=== PATIENT | female | born 1940 | race Caucasian/White ===

== ENCOUNTER 2021-06-25 08:19 | Outpatient (CLI) | payer MEDICARE, OTHER | END 2021-06-25 08:20 | disposition home or self-care (01) | LOC: CSHCT 08:19 | PROVIDERS: ATTEND Internal Medicine Hematology & Oncology | DX: C02.2 Malignant neoplasm of ventral surface of tongue (principal); C34.02 Malignant neoplasm of left main bronchus; J90 Pleural effusion, not elsewhere classified; J98.4 Other disorders of lung; R91.1 Solitary pulmonary nodule; R91.8 Other nonspecific abnormal finding of lung field; R59.0 Localized enlarged lymph nodes | CPT/HCPCS: 70491; 71260 ==

== ENCOUNTER 2021-07-06 11:40 | Inpatient (IN) | payer MEDICARE, OTHER ==
[2021-07-06] MEDS ORDERED: Dexamethasone 10 MG/ML VIAL ONE (12:18)
[2021-07-06] MEDS ORDERED: Magnesium 2 GM/50 ML BAG (IN WATER) ONE (12:18)
[2021-07-06 12:45] LABS: #Basophils 0.1 10x3/uL (0.0-0.2); #Eosinphils 0.2 10x3/uL (0.0-0.5); #Monocytes 0.6 10x3/uL (0.0-1.1); #Neutrophils 15.1 10x3/uL (1.5-8.4); %Basophils 0.4 % (0.0-2.0); %Eosinophils 1.3 % (0.0-6.0); %Lymphocytes 5.4 % (18.0-47.0); %Monocytes 3.3 % (0.0-10.0); %Neutrophils 87.8 % (40.0-75.0); Hemoglobin 10.5 g/dL (12.0-15.5); Mean Corpuscular HGB CONC 31.2 g/dL (32.0-36.0); Mean Corpuscular Hemoglobin 24.7 pg (27.0-33.0); Mean Corpuscular Volume 79.3 fl (81.6-98.3); Mean Platelet Volume 8.2 fl (7.4-10.4); Platelet Count 781 10x3/uL (150-450); Red Blood Cell (RBC) Count 4.25 10x6/uL (3.90-5.03); White Blood Cell (WBC) Count 17.2 10x3/uL (3.5-10.5)
[2021-07-06 13:09] LABS: ALT (SGPT) 23 U/L (8-55); AST (SGOT) 28 U/L (5-34); Albumin 2.8 g/dL (3.4-4.8); Alkaline Phosphatase 109 U/L (40-110); Anion Gap 19 mmol/L (10-20); BUN (Urea Nitrogen) 23 mg/dL (9.8-20.1); Bilirubin, Total 0.3 mg/dL (0.2-1.2); CK (CPK) 20 U/L (29-168); Calc. Creatinine Clearance 0 mL/min (70-130); Calcium 8.2 mg/dL (7.8-10.44); Carbon Dioxide 22 mmol/L (23-31); Chloride 98 mmol/L (98-107); Globulin 3.3 g/dL (2.4-3.5); Glucose 107 mg/dL (83-110); Lipase 10 U/L (8-78); Potassium 4.4 mmol/L (3.5-5.1); Protein, Total 6.1 g/dL (5.8-8.1); Sodium 135 mmol/L (136-145)
[2021-07-06 13:27] LABS: Base Excess (BEa) -1.9 mEq/L (-2.0 to +3.0); CO2 Tension 29.4 mmHg (35.0-45.0); Calcium, Ionized (arterial) 1.09 mmol/L (1.12-1.30); Carboxyhemoglobin (COHb) 0.6 gm% (0.0-3.0); Hemoglobin (Hb) 10.8 g/dL (12.0-16.0); O2 Tension (PaO2), arterial 51.8 mmHg (> 60.0); Potassium - ABG Lab 3.8 mmol/L (3.70-5.30); Puncture Site RRA; pH, Arterial 7.47 (7.35-7.45)
[2021-07-06] MEDS ORDERED: Cefepime 2 GM VIAL ONE (13:30)
[2021-07-06 13:41] LABS: Hypochromia SLIGHT = 6-15 cells (100X) (0-5/hpf); Microcytosis SLIGHT = 6-15 cells (100X) (0-5/hpf); Platelet Morphology Comment Appears Increased
[2021-07-06 14:07] LABS: SARS-CoV-2 NAA Rapid Test Not Detected (NotDetected)
[2021-07-06] MEDS ORDERED: Acetaminophen 325 MG TAB PO PRN (14:24)
[2021-07-06] MEDS ORDERED: Senokot S 8.6-50 MG TAB PO PRN (14:24)
[2021-07-06] MEDS ORDERED: Ondansetron PF 4 MG/2 ML Vial IVP PRN (14:24)
[2021-07-06] MEDS ORDERED: Ondansetron ODT 4 MG TAB PO PRN (14:24)
[2021-07-06] MEDS ORDERED: Guaifenesin DM 100-10/5 ML UDCUP PO PRN (14:24)
[2021-07-06] MEDS ORDERED: Norepinephrine 8 MG/0.9% NS 250 ML ONE (14:51)
[2021-07-06] MEDS ORDERED: Albuterol Sulfate 2.5 mg/3 ml Neb NEB PRN (15:17)
[2021-07-06] MEDS ORDERED: methylPREDNISolone Sod Succ/PF 125 MG/2 ML VIAL IVP SCH (15:30)
[2021-07-06] MEDS: methylPREDNISolone Sod Succ 40 MG VIAL IVP SCH ×2 (19:07→23:32)
[2021-07-06] MEDS ORDERED: Famotidine 20 MG TAB PO SCH (21:00)
[2021-07-06] MEDS ORDERED: Vancomycin 1 GM in Premix Bag 1 BAG IVPB SCH (21:00)
[2021-07-06] MEDS ORDERED: Cefepime 2 GM in Sodium Chloride 0.9% 100 ML IVPB SCH (21:00)
[2021-07-07] MEDS ORDERED: Norepinephrine 8 MG/0.9% NS 250 ML IVPB SCH (02:00)
[2021-07-07 04:24] LABS: #Monocytes 0.1 10x3/uL (0.0-1.1); #Neutrophils 10.6 10x3/uL (1.5-8.4); %Basophils 0.2 % (0.0-2.0); %Monocytes 0.5 % (0.0-10.0); %Neutrophils 89.6 % (40.0-75.0); Hemoglobin 10.1 g/dL (12.0-15.5); Mean Corpuscular HGB CONC 32.3 g/dL (32.0-36.0); Mean Corpuscular Hemoglobin 25.1 pg (27.0-33.0); Mean Corpuscular Volume 77.7 fl (81.6-98.3); Mean Platelet Volume 8.2 fl (7.4-10.4); Platelet Count 725 10x3/uL (150-450); RBC Distribution Width 14.9 % (11.5-14.5); Red Blood Cell (RBC) Count 4.03 10x6/uL (3.90-5.03); White Blood Cell (WBC) Count 11.8 10x3/uL (3.5-10.5)
[2021-07-07 04:36] LABS: Anion Gap 15 mmol/L (10-20); BUN (Urea Nitrogen) 24 mg/dL (9.8-20.1); Calc. Creatinine Clearance 36 mL/min (70-130); Calcium 7.9 mg/dL (7.8-10.44); Carbon Dioxide 19 mmol/L (23-31); Chloride 105 mmol/L (98-107); Glucose 152 mg/dL (83-110); Potassium 4.3 mmol/L (3.5-5.1); Sodium 135 mmol/L (136-145)
[2021-07-07 05:19] LABS: Large Platelets SLIGHT; Platelet Morphology Comment Appears Increased; RBC Morphology Normal
[2021-07-07] MEDS: methylPREDNISolone Sod Succ 40 MG VIAL IVP SCH ×4 (05:41→23:50)
[2021-07-07 05:48] LABS: Bilirubin Neg (Negative); Blood, Urine 25 (Negative); Clarity Clear (Clear); Glucose, Urine (Dipstick) Normal (Negative); Ketone, Urine Negative (Negative); Leukocyte 100 (Negative); Nitrite Negative (Negative); Protein, Urine (Dipstick) 30 mg/dl (Neg-Trace); Urobilinogen Normal mg/dL (Less than 2)
[2021-07-07 05:58] LABS: RBC/HPF 0-3 HPF (0-3)
[2021-07-07 05:59] LABS: Bacteria/HPF Rare-Few HPF (None Seen); Legionella Urinary Ag Negative (Negative); Strep pneumo Urine Ag NEGATIVE (NEGATIVE); Transitional Epithelial 0-3 HPF (None Seen)
[2021-07-07] MEDS: Enoxaparin Sodium 40 MG/0.4 ML SYRINGE SC SCH (09:29)
[2021-07-07] MEDS: Cefepime 2 GM in Sodium Chloride 0.9% 100 ML IVPB SCH (13:12)
[2021-07-07] MEDS: Vancomycin HCl 750 MG in Sodium Chloride 0.9% 250 ML 250 ML IVPB SCH (15:32)
[2021-07-07] MEDS: Famotidine 20 MG TAB PO SCH (21:00)
[2021-07-07] MEDS: traZODone HCl 50 MG TAB PO PRN (21:00)
[2021-07-08] MEDS: Cefepime 2 GM in Sodium Chloride 0.9% 100 ML IVPB SCH ×2 (02:08→14:34)
[2021-07-08 04:30] LABS: Hemoglobin 9.9 g/dL (12.0-15.5); Mean Corpuscular HGB CONC 31.3 g/dL (32.0-36.0); Mean Corpuscular Hemoglobin 24.9 pg (27.0-33.0); Mean Corpuscular Volume 79.4 fl (81.6-98.3); Mean Platelet Volume 8.3 fl (7.4-10.4); Platelet Count 612 10x3/uL (150-450); RBC Distribution Width 15.4 % (11.5-14.5); Red Blood Cell (RBC) Count 3.98 10x6/uL (3.90-5.03); White Blood Cell (WBC) Count 20.8 10x3/uL (3.5-10.5)
[2021-07-08 04:48] LABS: Anion Gap 13 mmol/L (10-20); BUN (Urea Nitrogen) 29 mg/dL (9.8-20.1); Calc. Creatinine Clearance 36 mL/min (70-130); Calcium 7.9 mg/dL (7.8-10.44); Carbon Dioxide 21 mmol/L (23-31); Chloride 108 mmol/L (98-107); Glucose 158 mg/dL (83-110); Magnesium 2.1 mg/dL (1.6-2.6); Phosphorus 4.3 mg/dL (2.3-4.7); Potassium 4.4 mmol/L (3.5-5.1); Sodium 138 mmol/L (136-145)
[2021-07-08] MEDS ORDERED: Levothyroxine Sodium 25 MCG TAB PO SCH (06:00)
[2021-07-08 06:02] LABS: MDiff Complete? YES
[2021-07-08 06:05] LABS: Band 6 % (5-11); Lymphocytes 5 % (21-51); Monocytes 2 % (0-10); Neutrophil 87 % (42-75); Platelet Morphology Comment Appears Adequate
[2021-07-08 06:06] LABS: RBC Morphology Normal
[2021-07-08] MEDS: Amlodipine 5 MG TAB PO SCH (08:46)
[2021-07-08] MEDS: Levothyroxine Sodium 25 MCG TAB PO SCH (08:47)
[2021-07-08] MEDS: Aspirin 81 mg Enteric Coated Tablet PO SCH (08:47)
[2021-07-08] MEDS: Nicotine 21 MG PATCH TOP SCH (08:47)
[2021-07-08] MEDS: Enoxaparin Sodium 40 MG/0.4 ML SYRINGE SC SCH (08:47)
[2021-07-08] MEDS: methylPREDNISolone Sod Succ 40 MG VIAL IVP SCH ×4 (09:02→23:45)
[2021-07-08 15:24] LABS: Vancomycin, Trough 10.1 ug/mL
[2021-07-08] MEDS: Vancomycin HCl 750 MG in Sodium Chloride 0.9% 250 ML 250 ML IVPB SCH (15:49)
[2021-07-08] MEDS: Famotidine 20 MG TAB PO SCH (21:17)
[2021-07-08] MEDS: traZODone HCl 50 MG TAB PO PRN (21:17)
[2021-07-09] MEDS: Cefepime 2 GM in Sodium Chloride 0.9% 100 ML IVPB SCH ×2 (01:51→13:01)
[2021-07-09 03:49] LABS: #Monocytes 0.2 10x3/uL (0.0-1.1); #Neutrophils 17.3 10x3/uL (1.5-8.4); %Basophils 0.2 % (0.0-2.0); %Monocytes 0.8 % (0.0-10.0); %Neutrophils 91.7 % (40.0-75.0); Hemoglobin 9.3 g/dL (12.0-15.5); Mean Corpuscular HGB CONC 30.2 g/dL (32.0-36.0); Mean Corpuscular Hemoglobin 24.2 pg (27.0-33.0); Platelet Count 634 10x3/uL (150-450); RBC Distribution Width 15.5 % (11.5-14.5); Red Blood Cell (RBC) Count 3.85 10x6/uL (3.90-5.03); White Blood Cell (WBC) Count 18.9 10x3/uL (3.5-10.5)
[2021-07-09 04:00] LABS: Anion Gap 13 mmol/L (10-20); BUN (Urea Nitrogen) 32 mg/dL (9.8-20.1); CRP (Inflammatory) 4.12 mg/dL (= or < 0.5); Calc. Creatinine Clearance 43 mL/min (70-130); Calcium 7.8 mg/dL (7.8-10.44); Carbon Dioxide 20 mmol/L (23-31); Chloride 108 mmol/L (98-107); Glucose 157 mg/dL (83-110); Potassium 3.9 mmol/L (3.5-5.1); Sodium 137 mmol/L (136-145)
[2021-07-09] MEDS: Levothyroxine Sodium 25 MCG TAB PO SCH (05:20)
[2021-07-09] MEDS: methylPREDNISolone Sod Succ 40 MG VIAL IVP SCH ×3 (06:13→21:12)
[2021-07-09] MEDS: Amlodipine 5 MG TAB PO SCH (07:54)
[2021-07-09] MEDS: Nicotine 21 MG PATCH TOP SCH (07:54)
[2021-07-09] MEDS: Enoxaparin Sodium 40 MG/0.4 ML SYRINGE SC SCH (07:55)
[2021-07-09] MEDS: Aspirin 81 mg Enteric Coated Tablet PO SCH (07:55)
[2021-07-09] MEDS ORDERED: Vancomycin HCl 1 GM in Sodium Chloride 0.9% 250 ML 250 ML IVPB SCH (15:00)
[2021-07-09] MEDS: Famotidine 20 MG TAB PO SCH (20:17)
[2021-07-10] MEDS: Cefepime 2 GM in Sodium Chloride 0.9% 100 ML IVPB SCH ×2 (02:15→14:34)
[2021-07-10] MEDS: Levothyroxine Sodium 25 MCG TAB PO SCH (05:37)
[2021-07-10] MEDS: methylPREDNISolone Sod Succ 40 MG VIAL IVP SCH ×2 (05:37→14:34)
[2021-07-10] MEDS: Amlodipine 5 MG TAB PO SCH (08:33)
[2021-07-10] MEDS: Enoxaparin Sodium 40 MG/0.4 ML SYRINGE SC SCH (08:33)
[2021-07-10] MEDS: Aspirin 81 mg Enteric Coated Tablet PO SCH (08:33)
[2021-07-10] MEDS: Nicotine 21 MG PATCH TOP SCH (08:33)
[2021-07-11] MEDS ORDERED: Sodium Chloride 0.9% 500 ML IV SCH (05:30)
[2021-07-11] MEDS: Famotidine 20 MG TAB PO SCH ×2 (07:39→20:44)
[2021-07-11] MEDS: Cefepime 2 GM in Sodium Chloride 0.9% 100 ML IVPB SCH ×2 (07:40→14:19)
[2021-07-11] MEDS: methylPREDNISolone Sod Succ 40 MG VIAL IVP SCH ×3 (07:40→22:32)
[2021-07-11] MEDS: Levothyroxine Sodium 25 MCG TAB PO SCH (07:40)
[2021-07-11] MEDS: Amlodipine 5 MG TAB PO SCH (08:20)
[2021-07-11] MEDS: Nicotine 21 MG PATCH TOP SCH (08:21)
[2021-07-11] MEDS: Enoxaparin Sodium 40 MG/0.4 ML SYRINGE SC SCH (08:21)
[2021-07-11] MEDS: Aspirin 81 mg Enteric Coated Tablet PO SCH (08:21)
[2021-07-11] MEDS: traZODone HCl 50 MG TAB PO PRN (20:44)
[2021-07-12 03:51] LABS: Hemoglobin 9.7 g/dL (12.0-15.5); Mean Corpuscular HGB CONC 30.6 g/dL (32.0-36.0); Mean Corpuscular Hemoglobin 24.5 pg (27.0-33.0); Mean Corpuscular Volume 80.1 fl (81.6-98.3); Mean Platelet Volume 8.1 fl (7.4-10.4); Platelet Count 564 10x3/uL (150-450); Red Blood Cell (RBC) Count 3.96 10x6/uL (3.90-5.03); White Blood Cell (WBC) Count 11.6 10x3/uL (3.5-10.5)
[2021-07-12 04:09] LABS: Anion Gap 13 mmol/L (10-20); BUN (Urea Nitrogen) 33 mg/dL (9.8-20.1); CRP (Inflammatory) 0.98 mg/dL (= or < 0.5); Calc. Creatinine Clearance 50 mL/min (70-130); Calcium 7.4 mg/dL (7.8-10.44); Carbon Dioxide 22 mmol/L (23-31); Chloride 107 mmol/L (98-107); Glucose 178 mg/dL (83-110); Potassium 3.7 mmol/L (3.5-5.1); Sodium 138 mmol/L (136-145)
[2021-07-12 04:38] LABS: MDiff Complete? YES; Manual Diff?? YES
[2021-07-12 05:41] LABS: Band 4 % (5-11); Lymphocytes 2 % (21-51); Metamyelocyte 1 % (0-0); Neutrophil 91 % (42-75); Platelet Morphology Comment Appears Increased; Reactive Lymphocytes 1 % (0-10)
[2021-07-12 05:42] LABS: Anisocytosis SLIGHT = 6-15 cells (100X) (0-5/hpf); Hypochromia SLIGHT = 6-15 cells (100X) (0-5/hpf); Macrocytosis SLIGHT = 6-15 cells (100X) (0-5/hpf); Microcytosis SLIGHT = 6-15 cells (100X) (0-5/hpf)
[2021-07-12] MEDS: Cefepime 2 GM in Sodium Chloride 0.9% 100 ML IVPB SCH ×2 (05:47→14:37)
[2021-07-12] MEDS: Levothyroxine Sodium 25 MCG TAB PO SCH (05:48)
[2021-07-12] MEDS: methylPREDNISolone Sod Succ 40 MG VIAL IVP SCH ×3 (06:27→21:07)
[2021-07-12] MEDS: Enoxaparin Sodium 40 MG/0.4 ML SYRINGE SC SCH (08:03)
[2021-07-12] MEDS: Amlodipine 5 MG TAB PO SCH (08:03)
[2021-07-12] MEDS: Aspirin 81 mg Enteric Coated Tablet PO SCH (08:03)
[2021-07-12] MEDS: Nicotine 21 MG PATCH TOP SCH (08:04)
[2021-07-12] MEDS ORDERED: Bisacodyl 5 MG TAB PO PRN (11:28)
[2021-07-12] MEDS ORDERED: hydrALAZINE 20 MG/ML VIAL SLOW IVP PRN (11:28)
[2021-07-12] MEDS ORDERED: Cepastat Lozenges 1 LOZ PO PRN (11:28)
[2021-07-12] MEDS ORDERED: Zolpidem Tartrate 5 MG TAB PO PRN (11:28)
[2021-07-12] MEDS ORDERED: Loperamide HCl 2 MG CAP PO PRN ×2 (11:28→11:36)
[2021-07-12] MEDS ORDERED: HYDROcodone/Acetaminophen 5/325 mg Tablet PO PRN (11:28)
[2021-07-12] MEDS ORDERED: Sodium Chloride 0.65% Nasal 44 ML BOT EA NARE PRN (11:28)
[2021-07-12] MEDS ORDERED: Loratadine 10 MG TAB PO PRN (11:28)
[2021-07-12] MEDS ORDERED: Artificial Tear Sol 15 ML BOT EA EYE PRN (11:28)
[2021-07-12] MEDS ORDERED: Calcium Carbonate 500 MG ChewTAB PO PRN (11:28)
[2021-07-12] MEDS ORDERED: Hydrocerin (Eucerin) Cream 120 gm Jar TOP PRN (11:28)
[2021-07-12] MEDS ORDERED: GUAIFENESIN SF SOLN 200 MG/10 ML UDCUP PO PRN (11:28)
[2021-07-12] MEDS: Famotidine 20 MG TAB PO SCH (20:17)
[2021-07-12] MEDS: traZODone HCl 50 MG TAB PO PRN (21:15)
[2021-07-13] MEDS: Cefepime 2 GM in Sodium Chloride 0.9% 100 ML IVPB SCH ×2 (01:58→14:55)
[2021-07-13 05:09] LABS: ALT (SGPT) 24 U/L (8-55); AST (SGOT) 27 U/L (5-34); Albumin 2.6 g/dL (3.4-4.8); Alkaline Phosphatase 61 U/L (40-110); Anion Gap 14 mmol/L (10-20); BUN (Urea Nitrogen) 33 mg/dL (9.8-20.1); Bilirubin, Total 0.2 mg/dL (0.2-1.2); Calc. Creatinine Clearance 0 mL/min (70-130); Calcium 7.6 mg/dL (7.8-10.44); Carbon Dioxide 21 mmol/L (23-31); Chloride 107 mmol/L (98-107); Globulin 2.9 g/dL (2.4-3.5); Glucose 147 mg/dL (83-110); Magnesium 1.9 mg/dL (1.6-2.6); Phosphorus 2.9 mg/dL (2.3-4.7); Potassium 4.2 mmol/L (3.5-5.1); Protein, Total 5.5 g/dL (5.8-8.1); Sodium 138 mmol/L (136-145)
[2021-07-13 05:21] LABS: Hemoglobin 10.9 g/dL (12.0-15.5); Mean Corpuscular HGB CONC 30.1 g/dL (32.0-36.0); Mean Corpuscular Hemoglobin 24.2 pg (27.0-33.0); Mean Corpuscular Volume 80.4 fl (81.6-98.3); Mean Platelet Volume 8.1 fl (7.4-10.4); Platelet Count 591 10x3/uL (150-450); RBC Distribution Width 16.5 % (11.5-14.5); White Blood Cell (WBC) Count 14.5 10x3/uL (3.5-10.5)
[2021-07-13 05:24] VITALS: BMI 21.4
[2021-07-13 06:04] LABS: MDiff Complete? YES
[2021-07-13 06:05] LABS: Platelet Morphology Comment Appears Increased
[2021-07-13 06:06] LABS: RBC Morphology Normal
[2021-07-13] MEDS: Levothyroxine Sodium 25 MCG TAB PO SCH (06:07)
[2021-07-13] MEDS: methylPREDNISolone Sod Succ 40 MG VIAL IVP SCH ×3 (06:07→22:17)
[2021-07-13 06:10] LABS: Band 3 % (5-11); Lymphocytes 4 % (21-51); Monocytes 6 % (0-10); Neutrophil 87 % (42-75)
[2021-07-13] MEDS: Nicotine 21 MG PATCH TOP SCH (08:05)
[2021-07-13] MEDS: Amlodipine 5 MG TAB PO SCH (11:21)
[2021-07-13] MEDS: Enoxaparin Sodium 40 MG/0.4 ML SYRINGE SC SCH (11:23)
[2021-07-13] MEDS: Aspirin 81 mg Enteric Coated Tablet PO SCH (11:23)
[2021-07-13] MEDS: Mometasone/Formoterol 200/5 60 PUFF INH SCH (18:53)
[2021-07-13] MEDS: traZODone HCl 50 MG TAB PO PRN (22:23)
[2021-07-14] MEDS: Cefepime 2 GM in Sodium Chloride 0.9% 100 ML IVPB SCH ×2 (01:50→15:25)
[2021-07-14 05:22] LABS: Hemoglobin 10.8 g/dL (12.0-15.5); Mean Corpuscular HGB CONC 30.9 g/dL (32.0-36.0); Mean Corpuscular Hemoglobin 24.9 pg (27.0-33.0); Mean Corpuscular Volume 80.6 fl (81.6-98.3); Mean Platelet Volume 8.4 fl (7.4-10.4); Platelet Count 520 10x3/uL (150-450); RBC Distribution Width 16.6 % (11.5-14.5); Red Blood Cell (RBC) Count 4.34 10x6/uL (3.90-5.03); White Blood Cell (WBC) Count 12.1 10x3/uL (3.5-10.5)
[2021-07-14 05:23] LABS: MDiff Complete? YES; Manual Diff?? YES
[2021-07-14 05:45] LABS: Anion Gap 12 mmol/L (10-20); BUN (Urea Nitrogen) 36 mg/dL (9.8-20.1); Calc. Creatinine Clearance 46 mL/min (70-130); Calcium 7.3 mg/dL (7.8-10.44); Carbon Dioxide 21 mmol/L (23-31); Chloride 107 mmol/L (98-107); Glucose 134 mg/dL (83-110); Potassium 4.1 mmol/L (3.5-5.1); Sodium 136 mmol/L (136-145)
[2021-07-14] MEDS: methylPREDNISolone Sod Succ 40 MG VIAL IVP SCH ×3 (07:49→22:05)
[2021-07-14] MEDS: Levothyroxine Sodium 25 MCG TAB PO SCH (07:49)
[2021-07-14 08:05] LABS: Band 2 % (5-11); Lymphocytes 7 % (21-51); Monocytes 3 % (0-10); Neutrophil 86 % (42-75); Reactive Lymphocytes 2 % (0-10)
[2021-07-14 08:06] LABS: Platelet Morphology Comment Appears Increased
[2021-07-14 08:09] LABS: RBC Morphology Normal
[2021-07-14 08:54] LABS: SARS-CoV-2 PCR by NAA Not Detected (NotDetected)
[2021-07-14] MEDS: Nicotine 21 MG PATCH TOP SCH (11:00)
[2021-07-14] MEDS: Enoxaparin Sodium 40 MG/0.4 ML SYRINGE SC SCH (11:00)
[2021-07-14] MEDS: Amlodipine 5 MG TAB PO SCH (13:07)
[2021-07-14] MEDS: Aspirin 81 mg Enteric Coated Tablet PO SCH (13:08)
[2021-07-14] MEDS: Mometasone/Formoterol 200/5 60 PUFF INH SCH ×2 (19:37→23:45)
[2021-07-14] MEDS: traZODone HCl 50 MG TAB PO PRN (22:26)
[2021-07-15] MEDS: Cefepime 2 GM in Sodium Chloride 0.9% 100 ML IVPB SCH ×2 (00:50→14:40)
[2021-07-15] MEDS: Levothyroxine Sodium 25 MCG TAB PO SCH (05:44)
[2021-07-15] MEDS: methylPREDNISolone Sod Succ 40 MG VIAL IVP SCH ×3 (05:45→21:33)
[2021-07-15] MEDS: Mometasone/Formoterol 200/5 60 PUFF INH SCH ×2 (07:24→19:14)
[2021-07-15] MEDS: Amlodipine 5 MG TAB PO SCH (08:55)
[2021-07-15] MEDS: Aspirin 81 mg Enteric Coated Tablet PO SCH (08:55)
[2021-07-15] MEDS: Enoxaparin Sodium 40 MG/0.4 ML SYRINGE SC SCH (08:56)
[2021-07-15] MEDS: Nicotine 21 MG PATCH TOP SCH (08:56)
[2021-07-15] MEDS: traZODone HCl 50 MG TAB PO PRN (21:33)
[2021-07-16] MEDS: Levothyroxine Sodium 25 MCG TAB PO SCH (05:36)
[2021-07-16] MEDS: Mometasone/Formoterol 200/5 60 PUFF INH SCH (07:49)
[2021-07-16] MEDS ORDERED: predniSONE 10 MG TAB PO SCH (09:00)
[2021-07-16] MEDS: Amlodipine 5 MG TAB PO SCH (10:14)
[2021-07-16] MEDS: Aspirin 81 mg Enteric Coated Tablet PO SCH (10:15)
[2021-07-16] MEDS: Enoxaparin Sodium 40 MG/0.4 ML SYRINGE SC SCH (10:15)
[2021-07-16] MEDS: Nicotine 21 MG PATCH TOP SCH (10:15)
[2021-07-16 13:18] VITALS: BP 117/82; TEMP 98.8
== END 2021-07-16 17:53 | disposition home or self-care (01) | DRG 871 ==
LOC: CSHERS 11:40 → CSHIMCU 15:37 → CSHTELE 07-13 11:11
PROVIDERS: ADMIT Hospitalist; ATTEND Internal Medicine
PROC: 3E033XZ Introduction of Vasopressor into Peripheral Vein, Percutaneous Approach (ICD-10-PCS; principal; 2021-07-06)
PROC: 5A0955A Assistance with Respiratory Ventilation, Greater than 96 Consecutive Hours, High Flow/Velocity Cannula (ICD-10-PCS; 2021-07-06)
PROC: 3E0333Z Introduction of Anti-inflammatory into Peripheral Vein, Percutaneous Approach (ICD-10-PCS; 2021-07-06)
DX: A41.9 Sepsis, unspecified organism (principal); R65.21 Severe sepsis with septic shock; J18.9 Pneumonia, unspecified organism; J96.21 Acute and chronic respiratory failure with hypoxia; J44.1 Chronic obstructive pulmonary disease with (acute) exacerbation; J44.0 Chronic obstructive pulmonary disease with (acute) lower respiratory infection; E44.0 Moderate protein-calorie malnutrition; C78.02 Secondary malignant neoplasm of left lung; D63.8 Anemia in other chronic diseases classified elsewhere; Z20.822 Contact with and (suspected) exposure to COVID-19; Z66 Do not resuscitate; F17.210 Nicotine dependence, cigarettes, uncomplicated; C02.9 Malignant neoplasm of tongue, unspecified; F03.90 Unspecified dementia, unspecified severity, without behavioral disturbance, psychotic disturbance, mood disturbance, and anxiety; F32.A Depression, unspecified; E03.9 Hypothyroidism, unspecified; C50.912 Malignant neoplasm of unspecified site of left female breast; I10 Essential (primary) hypertension; Z79.899 Other long term (current) drug therapy; Z79.891 Long term (current) use of opiate analgesic; Z79.82 Long term (current) use of aspirin; Z90.89 Acquired absence of other organs; Z71.6 Tobacco abuse counseling; Z68.21 Body mass index [BMI] 21.0-21.9, adult; Z79.52 Long term (current) use of systemic steroids; Z79.890 Hormone replacement therapy
CPT/HCPCS: 36415; 36600; 71045; 80048; 80053; 80202; 81001; 82550; 82805; 83605; 83690; 83735; 83880; 84100; 84145; 84484; 85025; 85652; 86140; 87040; 87070; 87205; 87449; 87804; 87899; 93005; 93306; 94640; 94760; 94762; 96365; 96366; 96367; 96368; 96375; J0692; J1100; J1650; J1956; J2920; J2930; J3370; J3475; J3490; J7050; J7512; J7620; U0002; U0003; U0005

== ENCOUNTER 2021-08-04 07:46 | Outpatient (CLI) | payer MEDICARE, OTHER | END 2021-08-04 07:47 | disposition home or self-care (01) | LOC: CSHCT 07:46 | PROVIDERS: ATTEND Internal Medicine Hematology & Oncology | DX: C34.90 Malignant neoplasm of unspecified part of unspecified bronchus or lung (principal); J18.9 Pneumonia, unspecified organism; R91.8 Other nonspecific abnormal finding of lung field | CPT/HCPCS: 71260; 82565 ==

== ENCOUNTER 2021-11-09 12:27 | Outpatient (CLI) | payer MEDICARE, OTHER ==
[~2021-11-09 12:27] MED LIST: Iopamidol 300 61% 100 ML VIAL FS ONE
== END 2021-11-09 12:28 | disposition home or self-care (01) ==
LOC: CSHCT 12:27
PROVIDERS: ATTEND Internal Medicine Hematology & Oncology
DX: C34.02 Malignant neoplasm of left main bronchus (principal); R91.8 Other nonspecific abnormal finding of lung field
CPT/HCPCS: 71260; 82565

== ENCOUNTER 2022-02-21 13:41 | Inpatient (IN) | payer MEDICARE, OTHER ==
[2022-02-21 14:26] LABS: #Monocytes 0.2 10x3/uL (0.0-1.1); #Neutrophils 7.9 10x3/uL (1.5-8.4); %Basophils 0.5 % (0.0-2.0); %Eosinophils 0.1 % (0.0-6.0); %Lymphocytes 5.1 % (18.0-47.0); %Monocytes 1.8 % (0.0-10.0); %Neutrophils 90.8 % (40.0-75.0); Hemoglobin 12.1 g/dL (12.0-15.5); Mean Corpuscular Hemoglobin 25.2 pg (27.0-33.0); Mean Platelet Volume 9.4 fl (7.4-10.4); Platelet Count 301 10x3/uL (150-450); RBC Distribution Width 17.7 % (11.5-14.5); White Blood Cell (WBC) Count 8.7 10x3/uL (3.5-10.5)
[2022-02-21 14:38] LABS: ALT (SGPT) 13 U/L (8-55); AST (SGOT) 14 U/L (5-34); Albumin 4.1 g/dL (3.4-4.8); Alkaline Phosphatase 61 U/L (40-110); Anion Gap 16 mmol/L (10-20); BUN (Urea Nitrogen) 17 mg/dL (9.8-20.1); Bilirubin, Total 0.5 mg/dL (0.2-1.2); Calc. Creatinine Clearance 0 mL/min (70-130); Calcium 9.2 mg/dL (7.8-10.44); Carbon Dioxide 26 mmol/L (23-31); Chloride 102 mmol/L (98-107); Estimated GFR 55; Globulin 2.5 g/dL (2.4-3.5); Glucose 155 mg/dL (83-110); Potassium 3.3 mmol/L (3.5-5.1); Protein, Total 6.6 g/dL (5.8-8.1); Sodium 141 mmol/L (136-145)
[2022-02-21 15:01] LABS: CKMB 3.5 ng/mL (0-6.6)
[2022-02-21] MEDS ORDERED: Furosemide 40 MG/4 ML VIAL ONE (15:21)
[2022-02-21] MEDS ORDERED: Aspirin Chewable 81 MG TAB ONE (16:45)
[2022-02-21] MEDS ORDERED: hydrALAZINE 20 MG/ML VIAL SLOW IVP PRN (17:41)
[2022-02-21] MEDS ORDERED: Ondansetron ODT 4 MG TAB PO PRN (17:42)
[2022-02-21] MEDS ORDERED: Electrolyte Replacement Protocol 1 EACH FS PRN (17:45)
[2022-02-21] MEDS ORDERED: Ventolin HFA Inhaler 60 PUFF INHALER INH PRN (18:21)
[2022-02-21 18:26] LABS: Troponin I 0.045 ng/mL (< 0.028)
[2022-02-21] MEDS ORDERED: Potassium Chloride 20 MEQ TAB PO SCH (18:30)
[2022-02-21 19:42] LABS: SARS-CoV-2 NAA Rapid Test Not Detected (NotDetected)
[2022-02-21 21:15] LABS: Troponin I 0.055 ng/mL (< 0.028)
[2022-02-22] MEDS: HYDROcodone/Acetaminophen 5/325 mg Tablet PO PRN ×2 (03:20→14:31)
[2022-02-22 05:32] LABS: Anion Gap 15 mmol/L (10-20); BUN (Urea Nitrogen) 16 mg/dL (9.8-20.1); Calc. Creatinine Clearance 35 mL/min (70-130); Calcium 8.6 mg/dL (7.8-10.44); Carbon Dioxide 29 mmol/L (23-31); Chloride 103 mmol/L (98-107); Estimated GFR 65; Glucose 94 mg/dL (83-110); Potassium 3.1 mmol/L (3.5-5.1); Sodium 144 mmol/L (136-145)
[2022-02-22 05:33] LABS: #Basophils 0.1 10x3/uL (0.0-0.2); #Eosinphils 0.3 10x3/uL (0.0-0.5); #Monocytes 0.5 10x3/uL (0.0-1.1); #Neutrophils 6.3 10x3/uL (1.5-8.4); %Basophils 0.9 % (0.0-2.0); %Eosinophils 3.5 % (0.0-6.0); %Lymphocytes 10.4 % (18.0-47.0); %Monocytes 6.1 % (0.0-10.0); %Neutrophils 76.5 % (40.0-75.0); Hemoglobin 12.3 g/dL (12.0-15.5); Mean Corpuscular HGB CONC 30.7 g/dL (32.0-36.0); Mean Corpuscular Hemoglobin 25.5 pg (27.0-33.0); Mean Corpuscular Volume 83.2 fl (81.6-98.3); Mean Platelet Volume 9.5 fl (7.4-10.4); Platelet Count 210 10x3/uL (150-450); RBC Distribution Width 18.2 % (11.5-14.5); Red Blood Cell (RBC) Count 4.82 10x6/uL (3.90-5.03); White Blood Cell (WBC) Count 7.9 10x3/uL (3.5-10.5)
[2022-02-22] MEDS ORDERED: Potassium Chloride 20 MEQ TAB PO SCH ×2 (05:45→13:00)
[2022-02-22] MEDS: Aspirin 81 mg Enteric Coated Tablet PO SCH (08:35)
[2022-02-22] MEDS: Furosemide 40 MG/4 ML VIAL SLOW IVP SCH (08:35)
[2022-02-22] MEDS ORDERED: Polyethylene Glycol 3350 17 GM Packet PO PRN (10:24)
[2022-02-22] MEDS ORDERED: predniSONE 20 MG TAB PO SCH (10:30)
[2022-02-22 11:34] LABS: Potassium 3.5 mmol/L (3.5-5.1)
[2022-02-22] MEDS: Cefepime 1 GM in Sodium Chloride 0.9% 100 ML IVPB SCH ×2 (11:34→23:10)
[2022-02-22 11:41] LABS: Magnesium 1.3 mg/dL (1.6-2.6)
[2022-02-22] MEDS ORDERED: Magnesium 2 GM/50 ML(in water) 2 GM in Premix Bag 1 BAG IVPB SCH ×2 (13:00→15:15)
[2022-02-22 15:00] VITALS: BMI 17.2
[2022-02-22 18:28] LABS: Potassium 4.8 mmol/L (3.5-5.1)
[2022-02-22] MEDS: Mometasone/Formoterol 200/5 60 PUFF INH SCH (19:40)
[2022-02-22] MEDS: Docusate 100 MG CAP PO PRN (20:57)
[2022-02-22] MEDS: Senokot S 8.6-50 MG TAB PO SCH (20:59)
[2022-02-22] MEDS: Acetaminophen 325 MG TAB PO PRN (23:19)
[2022-02-22] MEDS: traZODone HCl 50 MG TAB PO PRN (23:19)
[2022-02-23] MEDS: Acetaminophen 325 MG TAB PO PRN ×2 (03:10→21:00)
[2022-02-23 05:30] LABS: #Basophils 0.1 10x3/uL (0.0-0.2); #Monocytes 0.5 10x3/uL (0.0-1.1); #Neutrophils 7.7 10x3/uL (1.5-8.4); %Basophils 0.6 % (0.0-2.0); %Eosinophils 0.1 % (0.0-6.0); %Lymphocytes 6.5 % (18.0-47.0); %Monocytes 5.2 % (0.0-10.0); Hemoglobin 11.9 g/dL (12.0-15.5); Mean Corpuscular HGB CONC 30.4 g/dL (32.0-36.0); Mean Corpuscular Hemoglobin 25.6 pg (27.0-33.0); Mean Corpuscular Volume 84.1 fl (81.6-98.3); Mean Platelet Volume 9.7 fl (7.4-10.4); Phosphorus 3.7 mg/dL (2.3-4.7); Platelet Count 279 10x3/uL (150-450); RBC Distribution Width 18.4 % (11.5-14.5); Red Blood Cell (RBC) Count 4.65 10x6/uL (3.90-5.03); White Blood Cell (WBC) Count 9.1 10x3/uL (3.5-10.5)
[2022-02-23 05:32] LABS: Anion Gap 16 mmol/L (10-20); BUN (Urea Nitrogen) 20 mg/dL (9.8-20.1); Calc. Creatinine Clearance 33 mL/min (70-130); Calcium 9.1 mg/dL (7.8-10.44); Carbon Dioxide 30 mmol/L (23-31); Cardiac Risk 4.6 (Less than 4.5); Chloride 104 mmol/L (98-107); Cholesterol 235 mg/dl (< 200 Desired); Estimated GFR 59; Glucose 134 mg/dL (83-110); HDL Cholesterol 51 mg/dL (>60 Neg Risk); LDL Cholesterol, Calculated 158 mg/dL; Magnesium 2.7 mg/dL (1.6-2.6); Potassium 5.2 mmol/L (3.5-5.1); Sodium 145 mmol/L (136-145); Triglycerides 131 mg/dL (Less than 150)
[2022-02-23] MEDS: Levothyroxine Sodium 25 MCG TAB PO SCH (06:52)
[2022-02-23] MEDS: Mometasone/Formoterol 200/5 60 PUFF INH SCH ×2 (07:01→19:29)
[2022-02-23] MEDS ORDERED: predniSONE 20 MG TAB PO SCH (08:00)
[2022-02-23] MEDS ORDERED: Enoxaparin Sodium 30 MG/0.3 ML SYRINGE SC SCH (09:00)
[2022-02-23] MEDS ORDERED: Enoxaparin Sodium 40 MG/0.4 ML SYRINGE SC SCH (09:00)
[2022-02-23] MEDS ORDERED: Enoxaparin Sodium 30 MG/0.3 ML SYRINGE ONE (09:46)
[2022-02-23] MEDS: Amlodipine 10 MG TAB PO SCH (09:50)
[2022-02-23] MEDS: predniSONE 50 MG TAB PO SCH (09:50)
[2022-02-23] MEDS: Senokot S 8.6-50 MG TAB PO SCH ×2 (09:50→21:01)
[2022-02-23] MEDS: Furosemide 40 MG/4 ML VIAL SLOW IVP SCH (09:50)
[2022-02-23] MEDS: Aspirin 81 mg Enteric Coated Tablet PO SCH (09:50)
[2022-02-23] MEDS: Nicotine 21 MG PATCH TOP SCH (09:52)
[2022-02-23] MEDS: Polyethylene Glycol 3350 17 GM Packet PO SCH (09:52)
[2022-02-23] MEDS: Cefepime 1 GM in Sodium Chloride 0.9% 100 ML IVPB SCH ×2 (14:41→23:27)
[2022-02-23 14:42] LABS: Anion Gap 18 mmol/L (10-20); BUN (Urea Nitrogen) 24 mg/dL (9.8-20.1); Calc. Creatinine Clearance 30 mL/min (70-130); Calcium 9.2 mg/dL (7.8-10.44); Carbon Dioxide 31 mmol/L (23-31); Chloride 101 mmol/L (98-107); Estimated GFR 53; Glucose 152 mg/dL (83-110); Potassium 4.7 mmol/L (3.5-5.1); Sodium 145 mmol/L (136-145)
[2022-02-23] MEDS: Docusate 100 MG CAP PO PRN (21:00)
[2022-02-23] MEDS: traZODone HCl 50 MG TAB PO PRN (23:02)
[2022-02-23] MEDS: HYDROcodone/Acetaminophen 5/325 mg Tablet PO PRN (23:02)
[2022-02-24 05:20] LABS: #Monocytes 0.4 10x3/uL (0.0-1.1); #Neutrophils 9.9 10x3/uL (1.5-8.4); %Basophils 0.2 % (0.0-2.0); %Eosinophils 0.1 % (0.0-6.0); %Monocytes 3.3 % (0.0-10.0); %Neutrophils 85.4 % (40.0-75.0); Hemoglobin 11.6 g/dL (12.0-15.5); Mean Corpuscular HGB CONC 30.5 g/dL (32.0-36.0); Mean Corpuscular Hemoglobin 25.7 pg (27.0-33.0); Mean Corpuscular Volume 84.1 fl (81.6-98.3); Mean Platelet Volume 9.8 fl (7.4-10.4); Platelet Count 282 10x3/uL (150-450); RBC Distribution Width 18.1 % (11.5-14.5); Red Blood Cell (RBC) Count 4.52 10x6/uL (3.90-5.03); White Blood Cell (WBC) Count 11.7 10x3/uL (3.5-10.5)
[2022-02-24 05:29] LABS: Anion Gap 14 mmol/L (10-20); BUN (Urea Nitrogen) 26 mg/dL (9.8-20.1); Calc. Creatinine Clearance 32 mL/min (70-130); Calcium 8.9 mg/dL (7.8-10.44); Carbon Dioxide 32 mmol/L (23-31); Chloride 99 mmol/L (98-107); Estimated GFR 58; Glucose 134 mg/dL (83-110); Potassium 4.4 mmol/L (3.5-5.1); Sodium 141 mmol/L (136-145)
[2022-02-24] MEDS: Acetaminophen 325 MG TAB PO PRN (05:43)
[2022-02-24] MEDS: Levothyroxine Sodium 25 MCG TAB PO SCH (05:44)
[2022-02-24] MEDS ORDERED: Enoxaparin Sodium 40 MG/0.4 ML SYRINGE SC SCH (09:00)
[2022-02-24] MEDS ORDERED: Furosemide 20 MG TAB PO SCH (09:00)
[2022-02-24] MEDS: Cefepime 1 GM in Sodium Chloride 0.9% 100 ML IVPB SCH (11:00)
[2022-02-24] MEDS: Nicotine 21 MG PATCH TOP SCH (11:02)
[2022-02-24] MEDS: Polyethylene Glycol 3350 17 GM Packet PO SCH (11:02)
[2022-02-24] MEDS: Aspirin 81 mg Enteric Coated Tablet PO SCH (11:03)
[2022-02-24] MEDS: Amlodipine 10 MG TAB PO SCH (11:03)
[2022-02-24] MEDS: predniSONE 50 MG TAB PO SCH (11:03)
[2022-02-24] MEDS: Senokot S 8.6-50 MG TAB PO SCH (11:04)
[2022-02-24] MEDS: Mometasone/Formoterol 200/5 60 PUFF INH SCH ×2 (12:33→19:08)
[2022-02-24 16:18] VITALS: TEMP 97.6
[2022-02-24 16:31] VITALS: BP 137/76
== END 2022-02-24 18:35 | DRG 180 ==
LOC: CSHERS 13:41 → CSHERHOLD 17:31 → INTOOBSV 17:31 → CSHTELE 19:28 → OBSVTOIN 02-22 18:01
PROVIDERS: ADMIT Emergency Medicine; ATTEND Family Medicine
DX: C78.00 Secondary malignant neoplasm of unspecified lung (principal); I50.33 Acute on chronic diastolic (congestive) heart failure; J96.21 Acute and chronic respiratory failure with hypoxia; J44.1 Chronic obstructive pulmonary disease with (acute) exacerbation; I11.0 Hypertensive heart disease with heart failure; E03.9 Hypothyroidism, unspecified; F03.90 Unspecified dementia, unspecified severity, without behavioral disturbance, psychotic disturbance, mood disturbance, and anxiety; F32.A Depression, unspecified; I48.0 Paroxysmal atrial fibrillation; E87.5 Hyperkalemia; E83.41 Hypermagnesemia; D63.8 Anemia in other chronic diseases classified elsewhere; R79.89 Other specified abnormal findings of blood chemistry; Z20.822 Contact with and (suspected) exposure to COVID-19; C02.9 Malignant neoplasm of tongue, unspecified; Z79.899 Other long term (current) drug therapy; Z79.51 Long term (current) use of inhaled steroids; Z79.82 Long term (current) use of aspirin; Z85.3 Personal history of malignant neoplasm of breast; Z85.850 Personal history of malignant neoplasm of thyroid; Z85.118 Personal history of other malignant neoplasm of bronchus and lung; Z99.81 Dependence on supplemental oxygen; Z98.890 Other specified postprocedural states; Z90.49 Acquired absence of other specified parts of digestive tract; Z98.51 Tubal ligation status; Z87.891 Personal history of nicotine dependence
CPT/HCPCS: 36415; 71045; 80048; 80053; 80061; 82553; 83036; 83605; 83735; 83880; 84100; 84443; 84484; 85025; 87040; 93005; 94640; 94664; 94760; 96374; 96375; 96376; G0378; J0692; J1650; J1940; J3475; J3490; J7512; J7620; U0002

== ENCOUNTER 2022-03-01 04:23 | Emergency (ER) | payer MEDICARE, OTHER ==
[2022-03-01] MEDS ORDERED: Furosemide 40 MG/4 ML VIAL ONE (05:02)
== END 2022-03-01 05:49 | disposition home or self-care (01) ==
LOC: CSHERS 04:23
DX: I11.0 Hypertensive heart disease with heart failure (principal); I50.9 Heart failure, unspecified; E03.9 Hypothyroidism, unspecified; E78.5 Hyperlipidemia, unspecified; J44.9 Chronic obstructive pulmonary disease, unspecified; Z79.899 Other long term (current) drug therapy; Z79.82 Long term (current) use of aspirin; Z79.51 Long term (current) use of inhaled steroids
CPT/HCPCS: 71045; 93005; 96374; J1940

== ENCOUNTER 2022-04-21 07:11 | Inpatient (IN) | payer MEDICARE, OTHER ==
[2022-04-21 08:02] LABS: #Eosinphils 0.2 10x3/uL (0.0-0.5); #Monocytes 0.4 10x3/uL (0.0-1.1); #Neutrophils 9.3 10x3/uL (1.5-8.4); %Basophils 0.4 % (0.0-2.0); %Eosinophils 1.4 % (0.0-6.0); %Lymphocytes 7.4 % (18.0-47.0); %Neutrophils 85.4 % (40.0-75.0); Hemoglobin 11.1 g/dL (12.0-15.5); Mean Corpuscular HGB CONC 29.6 g/dL (32.0-36.0); Mean Corpuscular Hemoglobin 26.2 pg (27.0-33.0); Mean Corpuscular Volume 88.7 fl (81.6-98.3); Mean Platelet Volume 9.7 fl (7.4-10.4); Platelet Count 283 10x3/uL (150-450); RBC Distribution Width 17.1 % (11.5-14.5); Red Blood Cell (RBC) Count 4.23 10x6/uL (3.90-5.03); White Blood Cell (WBC) Count 10.9 10x3/uL (3.5-10.5)
[2022-04-21 08:10] LABS: Actual Bicarbonate (HCO3v) 33 mEq/L (22-28); Base Excess 7.6 mEq/L (-2.0 to +3.0); Calcium, Ionized (venous) 0.99 mmol/L (1.16-1.32); Chloride (VBG) 100 mmol/L (98-106); Potassium (VBG) 2.66 mmol/L (3.70-5.30); Puncture Site Other Site; RapidComm Collect By CBN; Sodium 141.5 mmol/L (133-146); pH (venous) 7.43 (7.32-7.43)
[2022-04-21 08:14] LABS: SARS-CoV-2 NAA Rapid Test Not Detected (NotDetected)
[2022-04-21 08:24] LABS: Anisocytosis SLIGHT = 6-15 cells (100X) (0-5/hpf); Hypochromia SLIGHT = 6-15 cells (100X) (0-5/hpf)
[2022-04-21 08:25] LABS: Platelet Morphology Comment Appears Adequate
[2022-04-21 08:38] LABS: CKMB 4.5 ng/mL (0-6.6)
[2022-04-21 08:44] LABS: Bilirubin Neg (Negative); Blood, Urine Negative (Negative); Clarity Sl. Cloudy (Clear); Glucose, Urine (Dipstick) 100 mg/dL (Negative); Ketone, Urine Negative (Negative); Leukocyte Negative (Negative); Nitrite Negative (Negative); Protein, Urine (Dipstick) 100 mg/dl (Neg-Trace); Urobilinogen Normal mg/dL (Less than 2)
[2022-04-21 08:58] LABS: RBC/HPF 0-3 HPF (0-3); Renal Epithelial 0-3 HPF (None Seen); Squamous Epithelial 0-3 HPF (0-3); WBC/HPF 0-3 HPF (0-3)
[2022-04-21 09:00] LABS: Bacteria/HPF Rare-Few HPF (None Seen)
[2022-04-21] MEDS ORDERED: Iopamidol 370 76% 100 ML VIAL ONE (09:20)
[2022-04-21 10:38] LABS: ALT (SGPT) 7 U/L (8-55); AST (SGOT) 14 U/L (5-34); Albumin 3.8 g/dL (3.4-4.8); Alkaline Phosphatase 59 U/L (40-110); Anion Gap 21 mmol/L (10-20); BUN (Urea Nitrogen) 24 mg/dL (9.8-20.1); Bilirubin, Total 0.4 mg/dL (0.2-1.2); CK (CPK) 30 U/L (29-168); Calc. Creatinine Clearance 0 mL/min (70-130); Calcium 8.5 mg/dL (7.8-10.44); Carbon Dioxide 32 mmol/L (23-31); Chloride 97 mmol/L (98-107); Estimated GFR 50; Globulin 2.7 g/dL (2.4-3.5); Glucose 286 mg/dL (83-110); Magnesium 1.5 mg/dL (1.6-2.6); Protein, Total 6.5 g/dL (5.8-8.1); Sodium 147 mmol/L (136-145)
[2022-04-21 10:42] LABS: Potassium 2.6 mmol/L (3.5-5.1)
[2022-04-21] MEDS ORDERED: Potassium Chloride 20 MEQ/100 ML PREMIX BAG ONE (11:15)
[2022-04-21] MEDS ORDERED: Magnesium 2 GM/50 ML BAG (IN WATER) ONE (11:15)
[2022-04-21 13:30] LABS: Troponin I 0.311 ng/mL (< 0.028)
[2022-04-21] MEDS ORDERED: Acetaminophen 325 MG TAB PO PRN (14:18)
[2022-04-21] MEDS ORDERED: Enoxaparin Sodium 80 MG/0.8 ML SYRINGE SC SCH (14:20)
[2022-04-21] MEDS ORDERED: Pantoprazole 40 MG VIAL IVP SCH (14:30)
[2022-04-21] MEDS ORDERED: Furosemide 40 MG/4 ML VIAL SLOW IVP SCH (14:30)
[2022-04-21] MEDS ORDERED: Electrolyte Replacement Protocol 1 EACH FS SCH (14:30)
[2022-04-21] MEDS ORDERED: Polyethylene Glycol 3350 17 GM Packet PO PRN (14:31)
[2022-04-21 15:39] LABS: Anion Gap 19 mmol/L (10-20); BUN (Urea Nitrogen) 22 mg/dL (9.8-20.1); Calc. Creatinine Clearance 45 mL/min (70-130); Calcium 8.6 mg/dL (7.8-10.44); Carbon Dioxide 29 mmol/L (23-31); Chloride 99 mmol/L (98-107); Estimated GFR 68; Glucose 102 mg/dL (83-110); Magnesium 2.5 mg/dL (1.6-2.6); Potassium 4.1 mmol/L (3.5-5.1); Sodium 143 mmol/L (136-145)
[2022-04-21 15:52] LABS: Troponin I 0.339 ng/mL (< 0.028)
[2022-04-21] MEDS: methylPREDNISolone Sod Succ 40 MG VIAL IVP SCH (17:09)
[2022-04-21] MEDS ORDERED: Ventolin HFA Inhaler 60 PUFF INHALER INH PRN (18:30)
[2022-04-21 19:03] LABS: Troponin I 0.233 ng/mL (< 0.028)
[2022-04-21] MEDS: Enoxaparin Sodium 60 MG/0.6 ML SYRINGE SC SCH (20:06)
[2022-04-21] MEDS ORDERED: Metoprolol Tartrate 25 MG TAB PO SCH (21:45)
[2022-04-22] MEDS: methylPREDNISolone Sod Succ 40 MG VIAL IVP SCH ×5 (00:18→23:27)
[2022-04-22 04:20] LABS: #Neutrophils 7.9 10x3/uL (1.5-8.4); %Basophils 0.2 % (0.0-2.0); %Lymphocytes 3.5 % (18.0-47.0); %Monocytes 0.5 % (0.0-10.0); %Neutrophils 94.5 % (40.0-75.0); Hemoglobin 10.4 g/dL (12.0-15.5); Mean Corpuscular HGB CONC 29.2 g/dL (32.0-36.0); Mean Corpuscular Hemoglobin 25.7 pg (27.0-33.0); Mean Corpuscular Volume 88.1 fl (81.6-98.3); Mean Platelet Volume 10.5 fl (7.4-10.4); Platelet Count 248 10x3/uL (150-450); RBC Distribution Width 17.1 % (11.5-14.5); Red Blood Cell (RBC) Count 4.04 10x6/uL (3.90-5.03); White Blood Cell (WBC) Count 8.4 10x3/uL (3.5-10.5)
[2022-04-22 04:37] LABS: ALT (SGPT) Less than 6 U/L (8-55); AST (SGOT) 15 U/L (5-34); Albumin 3.6 g/dL (3.4-4.8); Alkaline Phosphatase 55 U/L (40-110); Anion Gap 21 mmol/L (10-20); BUN (Urea Nitrogen) 19 mg/dL (9.8-20.1); Bilirubin, Total 0.5 mg/dL (0.2-1.2); Calc. Creatinine Clearance 42 mL/min (70-130); Calcium 8.5 mg/dL (7.8-10.44); Carbon Dioxide 30 mmol/L (23-31); Chloride 97 mmol/L (98-107); Estimated GFR 63; Globulin 2.5 g/dL (2.4-3.5); Glucose 147 mg/dL (83-110); Magnesium 1.8 mg/dL (1.6-2.6); Potassium 4.1 mmol/L (3.5-5.1); Protein, Total 6.1 g/dL (5.8-8.1); Sodium 144 mmol/L (136-145)
[2022-04-22] MEDS: Levothyroxine Sodium 100 MCG TAB PO SCH (05:37)
[2022-04-22] MEDS ORDERED: Magnesium 2 GM/50 ML(in water) 2 GM in Premix Bag 1 BAG IVPB SCH (06:00)
[2022-04-22 06:49] LABS: Microcytosis SLIGHT = 6-15 cells (100X) (0-5/hpf)
[2022-04-22 06:50] LABS: Elliptocytes SLIGHT = 2-5 cells (100X) (0-1/hpf); Hypochromia SLIGHT = 6-15 cells (100X) (0-5/hpf)
[2022-04-22] MEDS: Enoxaparin Sodium 60 MG/0.6 ML SYRINGE SC SCH ×2 (07:41→20:37)
[2022-04-22] MEDS: Aspirin Chewable 81 MG TAB PO SCH (07:42)
[2022-04-22] MEDS ORDERED: Furosemide 40 MG/4 ML VIAL SLOW IVP SCH (09:00)
[2022-04-22] MEDS ORDERED: Enoxaparin Sodium 60 MG/0.6 ML SYRINGE ONE ×2 (20:28)
[2022-04-23 04:40] LABS: #Eosinphils 0.1 10x3/uL (0.0-0.5); #Monocytes 0.3 10x3/uL (0.0-1.1); #Neutrophils 14.6 10x3/uL (1.5-8.4); %Basophils 0.1 % (0.0-2.0); %Eosinophils 0.5 % (0.0-6.0); %Lymphocytes 2.9 % (18.0-47.0); %Monocytes 1.6 % (0.0-10.0); %Neutrophils 93.9 % (40.0-75.0); Mean Corpuscular HGB CONC 31.8 g/dL (32.0-36.0); Mean Corpuscular Hemoglobin 26.6 pg (27.0-33.0); Mean Corpuscular Volume 83.5 fl (81.6-98.3); Mean Platelet Volume 10.1 fl (7.4-10.4); Platelet Count 239 10x3/uL (150-450); RBC Distribution Width 17.2 % (11.5-14.5); Red Blood Cell (RBC) Count 3.76 10x6/uL (3.90-5.03); White Blood Cell (WBC) Count 15.5 10x3/uL (3.5-10.5)
[2022-04-23 05:03] LABS: PTT 27.3 sec (22.0-33.0); Prothrombin Time 10.9 sec (9.5-12.1)
[2022-04-23 05:04] LABS: ALT (SGPT) Less than 6 U/L (8-55); AST (SGOT) 16 U/L (5-34); Albumin 3.4 g/dL (3.4-4.8); Alkaline Phosphatase 49 U/L (40-110); Anion Gap 20 mmol/L (10-20); BUN (Urea Nitrogen) 28 mg/dL (9.8-20.1); Bilirubin, Total 0.4 mg/dL (0.2-1.2); Calc. Creatinine Clearance 33 mL/min (70-130); Calcium 8.5 mg/dL (7.8-10.44); Carbon Dioxide 28 mmol/L (23-31); Chloride 95 mmol/L (98-107); Estimated GFR 47; Globulin 2.1 g/dL (2.4-3.5); Glucose 182 mg/dL (83-110); Potassium 3.9 mmol/L (3.5-5.1); Protein, Total 5.5 g/dL (5.8-8.1); Sodium 139 mmol/L (136-145)
[2022-04-23] MEDS: Levothyroxine Sodium 100 MCG TAB PO SCH (06:16)
[2022-04-23] MEDS: methylPREDNISolone Sod Succ 40 MG VIAL IVP SCH (06:22)
[2022-04-23] MEDS ORDERED: HYDROcodone/Acetaminophen 5/325 mg Tablet PO PRN ×2 (07:35)
[2022-04-23] MEDS: predniSONE 20 MG TAB PO SCH (08:13)
[2022-04-23] MEDS: Aspirin Chewable 81 MG TAB PO SCH (08:13)
[2022-04-23] MEDS: Furosemide 40 MG TAB PO SCH (08:14)
[2022-04-23] MEDS: Mometasone/Formoterol 60 PUFF AER INH SCH ×2 (09:46→19:25)
[2022-04-23 16:02] LABS: Hemoglobin 9.5 g/dL (12.0-15.5)
[2022-04-24 04:25] LABS: #Monocytes 0.7 10x3/uL (0.0-1.1); #Neutrophils 12.3 10x3/uL (1.5-8.4); %Basophils 0.1 % (0.0-2.0); %Eosinophils 0.1 % (0.0-6.0); %Monocytes 5.3 % (0.0-10.0); %Neutrophils 88.7 % (40.0-75.0); Hemoglobin 8.7 g/dL (12.0-15.5); Mean Corpuscular HGB CONC 31.8 g/dL (32.0-36.0); Mean Corpuscular Volume 85.1 fl (81.6-98.3); Mean Platelet Volume 10.1 fl (7.4-10.4); Platelet Count 238 10x3/uL (150-450); RBC Distribution Width 17.3 % (11.5-14.5); Red Blood Cell (RBC) Count 3.22 10x6/uL (3.90-5.03); White Blood Cell (WBC) Count 13.8 10x3/uL (3.5-10.5)
[2022-04-24 05:47] VITALS: BMI 20.5
[2022-04-24] MEDS: Levothyroxine Sodium 100 MCG TAB PO SCH (05:48)
[2022-04-24] MEDS: Mometasone/Formoterol 60 PUFF AER INH SCH (07:39)
[2022-04-24] MEDS: Furosemide 40 MG TAB PO SCH (08:17)
[2022-04-24] MEDS: predniSONE 20 MG TAB PO SCH (08:17)
[2022-04-24] MEDS: Aspirin Chewable 81 MG TAB PO SCH (08:17)
[2022-04-24] MEDS ORDERED: Enoxaparin Sodium 30 MG/0.3 ML SYRINGE SC SCH (09:00)
[2022-04-24 09:07] VITALS: BP 156/59; TEMP 98.8
== END 2022-04-24 09:50 | disposition home or self-care (01) | DRG 291 ==
LOC: CSHERS 07:11 → CSHIMCU 13:15
PROVIDERS: ADMIT Internal Medicine; ATTEND Internal Medicine
PROC: 5A09457 Assistance with Respiratory Ventilation, 24-96 Consecutive Hours, Continuous Positive Airway Pressure (ICD-10-PCS; principal; 2022-04-21)
DX: I11.0 Hypertensive heart disease with heart failure (principal); I50.33 Acute on chronic diastolic (congestive) heart failure; J96.21 Acute and chronic respiratory failure with hypoxia; J44.1 Chronic obstructive pulmonary disease with (acute) exacerbation; D62 Acute posthemorrhagic anemia; C79.89 Secondary malignant neoplasm of other specified sites; C78.02 Secondary malignant neoplasm of left lung; C78.01 Secondary malignant neoplasm of right lung; E03.9 Hypothyroidism, unspecified; E87.6 Hypokalemia; E83.42 Hypomagnesemia; R53.1 Weakness; Z66 Do not resuscitate; E78.5 Hyperlipidemia, unspecified; F03.90 Unspecified dementia, unspecified severity, without behavioral disturbance, psychotic disturbance, mood disturbance, and anxiety; I48.0 Paroxysmal atrial fibrillation; C50.912 Malignant neoplasm of unspecified site of left female breast; F32.A Depression, unspecified; Z20.822 Contact with and (suspected) exposure to COVID-19; Z99.81 Dependence on supplemental oxygen; Z90.89 Acquired absence of other organs; Z79.899 Other long term (current) drug therapy; Z79.82 Long term (current) use of aspirin; Z79.890 Hormone replacement therapy; Z79.52 Long term (current) use of systemic steroids; Z90.49 Acquired absence of other specified parts of digestive tract; Z98.51 Tubal ligation status; Z87.891 Personal history of nicotine dependence
CPT/HCPCS: 36415; 71045; 71275; 80053; 81003; 81015; 82550; 82553; 82805; 83605; 83735; 83880; 84443; 84484; 85025; 85610; 85730; 87040; 87081; 93005; 93010; 93306; 94640; 94660; 94664; 94760; C9113; J1650; J1940; J1956; J2920; J3475; J3480; J7512; J7620; Q9967